=== PATIENT | male | born 1950 | race Caucasian/White ===

== ENCOUNTER → 2017-12-03 | Outpatient (CLI) | payer MEDICARE ==
--- NOTE | 2017-12-03 18:15 | Diagnostic Imaging Report ---
PROCEDURE:X-RAY ABDOMEN - KUB COMPARISON:None. INDICATIONS:CALCULUS OF KIDNEY FINDINGS: Obstructive bowel gas pattern. 1.2 cm radiopaque density projecting over the mid aspect of the right renal shadow. No radiopaque densities project over the left renal shadow or expected course of the ureters or bladder. Pelvic phleboliths. No acute bony abnormalities. CONCLUSION: 1.2 cm nonobstructing calculus in the right kidney. Francesco Mckeon M.D. Dictated by: Francesco Mckeon M.D. on 12/03/2017 at 18:17 Electronically approved by: Francesco Mckeon M.D. on 12/03/2017 at 18:17
== END ==
LOC: RAD 14:38
PROVIDERS: ATTEND Urology
DX: N20.0 Calculus of kidney (principal)
CPT/HCPCS: 74018

== ENCOUNTER → 2018-02-27 | Outpatient (CLI) | payer MEDICARE ==
--- NOTE | 2018-02-27 18:23 | Diagnostic Imaging Report ---
EXAMINATION: CT of the abdomen and pelvis without contrast. TECHNIQUE: Spiral CT images of the abdomen and pelvis were performed from the lung bases to the lesser trochanters. No intravenous contrast was given per renal stone protocol. Coronal and sagittal reformatted images were obtained. COMPARISON: None. CLINICAL HISTORY:Follow-up right kidney stone DISCUSSION: ABSENCE OF INTRAVENOUS CONTRAST DECREASES SENSITIVITY FOR DETECTION OF FOCAL LESIONS AND VASCULAR PATHOLOGY. ABDOMEN/PELVIS: LOWER THORAX: Unremarkable. HEPATOBILIARY: Hepatic steatosis involving predominantly the right hepatic lobe. Normal hepatic size and contour. No focal lesions. No intra or extrahepatic biliary ductal dilation. GALLBLADDER: No radio-opaque stones or sludge. No wall thickening. SPLEEN: No splenomegaly. PANCREAS: No focal masses or ductal dilatation. ADRENALS: No adrenal nodules. KIDNEYS/URETERS: Right: 1.9 x 0.7 cm nonobstructing calculus in the right interpolar region. 5 mm nonobstructing calculus in the distal right ureter just proximal to the UVJ (series 3, image 150 and sagittal image 59). No hydronephrosis. There is convex soft tissue density in the renal sinus at the interpolar region (series 3, image 70, sagittal image 43). Mild perinephric stranding. Left: Punctate nonobstructing calculus in the interpolar region (series 3, image 73). No other renal or ureteral calculi, hydronephrosis or obstruction. No contour abnormalities. Mild perinephric stranding PELVIC ORGANS/BLADDER: No bladder calculi or focal lesions. Mild circumferential wall thickening. Mild prostatic enlargement. PERITONEUM/RETROPERITONEUM: No free air or fluid. LYMPH NODES: No intra-abdominal,retroperitoneal, pelvic or inguinal lymphadenopathy. VESSELS: Mild atherosclerotic calcification of the abdominal aorta. GI TRACT: No bowel dilation or evidence of obstruction. High density material in the stomach and proximal small bowel likely represents undigested material. Distal descending and sigmoid colon diverticulosis, without diverticulitis. Appendix is well identified and normal in caliber. BONES AND SOFT TISSUES: No aggressive lytic lesions. Degenerative disc changes in the lumbosacral spine. Soft tissues are grossly unremarkable. IMPRESSION: 1. 5 mm nonobstructing calculus in the distal right ureter just proximal to the right UVJ. No hydronephrosis. 2. 1.9 cm nonobstructing calculus in the right interpolar region. 3. Convex soft tissue density in the renal sinus at the interpolar region, which seems greater than expected for a prominent column of Jorge. An underlying renal mass is a consideration. Recommend contrast enhanced CT abdomen with renal mass protocol for evaluation. 4. Hepatic steatosis predominantly involving the right lobe. Signed by: Dr. Francesco Mckeon M.D. on 02/27/2018 6:19 PM
== END ==
LOC: CT 15:07
PROVIDERS: ATTEND Urology
DX: N20.0 Calculus of kidney (principal)
CPT/HCPCS: 74176

== ENCOUNTER → 2018-08-05 | Outpatient (CLI) | payer MEDICARE ==
--- NOTE | 2018-08-05 14:25 | Diagnostic Imaging Report ---
Exam: KUB. Clinical History: Right kidney stones. Follow-up Comparison: CT scan 02/27/2018 Findings: Frontal view of the abdomen demonstrates a nonobstructive bowel gas pattern with moderate retained stool. 1.0 cm stone over the right kidney. 0.5 cm stone in the mid right pelvis could be in the distal right ureter. Apparent numerous phleboliths in the pelvis. No acute bone abnormality. Impression: 1.0 cm stone over the right kidney. 0.5 cm stone in the mid right pelvis could be in the distal right ureter. Signed by: Dr. Luis Carlos Cohen M.D. on 08/05/2018 2:22 PM
== END ==
LOC: RAD 13:40
PROVIDERS: ATTEND Urology
DX: N20.0 Calculus of kidney (principal)
CPT/HCPCS: 74018